=== PATIENT | male | born 1975 | race Hispanic/Latino ===

== ENCOUNTER 2019-04-23 01:36 | Inpatient (IN) | payer OTHER ==
[~2019-04-23] VITALS: Ht 162.6 cm; Wt 90.4 kg
[2019-04-23 03:33] LABS: BASOPHILS % (AUTO) 0.7 % (0.0-5.0); EOSINOPHILS % (AUTO) 1.7 % (0.0-8.0); HEMATOCRIT 45.3 % (42-54); LYMPHOCYTES % (AUTO) 22.2 % (21.0-51.0); MEAN CORPUSCULAR HEMOGLOBIN 33.6 pg (27.0-33.0); MEAN CORPUSCULAR HGB CONC 34.7 g/dL (32.0-36.0); MEAN CORPUSCULAR VOLUME 96.9 fL (79-99); MONOCYTES % (AUTO) 5.6 % (3.0-13.0); NEUTROPHILS % (AUTO) 69.8 % (40.0-77.0); PLATELET COUNT (AUTO) 187 K/uL (130-400); RED BLOOD CELL COUNT(AUTO) 4.67 MIL/uL (4.50-6.20); RED CELL DISTRIBUTION WIDTH 12.9 % (11.0-15.5); WHITE BLOOD COUNT (AUTO) 7.7 K/uL (4.8-10.8)
[2019-04-23 03:36] LABS: CREATININE 1.1 mg/dL (0.5-1.5); POTASSIUM 3.5 mmol/L (3.5-5.1)
[2019-04-23 03:41] LABS: ALBUMIN 3.9 g/dL (3.5-5.0); BILIRUBIN,TOTAL 0.9 mg/dL (0.2-1.0); TOTAL PROTEIN, SERUM 7.4 g/dL (6.0-8.3)
[2019-04-23 03:43] LABS: INR 1.02 (0.85-1.15); PARTIAL THROMBOPLASTIN TIME 24.2 SEC (26.3-35.5); PROTHROMBIN TIME 10.7 SEC (9.6-11.6)
[2019-04-23] MEDS ORDERED: ONDANSETRON HCL 4 MG/2 ML VIAL ONE (03:49)
[2019-04-23] MEDS ORDERED: MORPHINE SULFATE 4 MG/1ML SYG ONE (03:49)
[2019-04-23 04:45] VITALS: BP 137/87
[2019-04-23] MEDS ORDERED: ACETAMINOPHEN 650 MG SUPPOSITORY RC PRN ×2 (05:00)
[2019-04-23] MEDS ORDERED: SODIUM CHLORIDE 0.9% 1000ML 1,000 ML IV SCH (05:00)
[2019-04-23] MEDS ORDERED: MORPHINE SULFATE 4 MG/1ML SYG IV PRN (05:00)
[2019-04-23] MEDS ORDERED: NITROGLYCERIN 0.4 MG SL TAB SL PRN (05:00)
[2019-04-23] MEDS ORDERED: MORPHINE SULFATE 2 MG/ML 1ML SYG IV PRN (05:00)
[2019-04-23] MEDS ORDERED: ONDANSETRON HCL 4 MG/2 ML VIAL IV PRN (05:00)
[2019-04-23] MEDS ORDERED: SODIUM CHLORIDE 0.9% 1000ML 1,000 ML IV STA (05:29)
[2019-04-23] MEDS ORDERED: LORAZEPAM 2 MG/ML 1 ML VIAL IVP PRN ×2 (05:30)
[2019-04-23] MEDS ORDERED: THIAMINE HCL 100 MG, FOLIC ACID 1 MG, M.V.I. IV [ADULT] 10 ML in SODIUM CHLORIDE 0.9% 1... IV SCH (05:30)
[2019-04-23] MEDS ORDERED: PHARMACY COMMUNICATION MISC PRN (05:30)
[2019-04-23] MEDS ORDERED: CHLORDIAZEPOXIDE HCL 25 MG CAP PO PRN ×2 (05:30)
[2019-04-23] MEDS ORDERED: PROMETHAZINE HCL 25 MG TABLET PO PRN (05:30)
--- NOTE | 2019-04-23 05:30 | NUR ---
ADMITTED ADMITTED TO ROOM 406, HOSPITALIST NANNETTE BURCH TO SEE AND EXAMEN PATIENT WITH ORDERS
[2019-04-23] MEDS ORDERED: POTASSIUM CHLORIDE 20MEQ/100ML 100 ML IV PRN ×2 (05:45→18:45)
[2019-04-23] MEDS ORDERED: LIDOCAINE HCL-MPF 1% 2ML VIAL IVP PRN ×2 (05:45→18:45)
[2019-04-23] MEDS ORDERED: MAGNESIUM 2GM PREMIX 50ML 50 ML IV PRN (05:45)
[2019-04-23] MEDS ORDERED: MORPHINE SULFATE 2 MG/ML 1ML SYG ONE (05:51)
[2019-04-23 06:05] LABS: MAGNESIUM 2.2 mg/dL (1.80-2.40); PHOSPHORUS 3.6 mg/dL (2.5-4.9)
[2019-04-23 08:00] VITALS: BP 129/65
[2019-04-23 09:05] LABS: APPEARANCE,URINE Clear (CLEAR); BILIRUBIN,URINE Negative (NEGATIVE); COLOR,URINE Yellow (YELLOW); GLUCOSE, URINE (UA) Negative (NEGATIVE); KETONES,URINE Negative (NEGATIVE); LEUKOCYTE ESTERASE ,URINE Negative (NEGATIVE); NITRATE,URINE Negative (NEGATIVE); OCCULT BLOOD,URINE Negative (NEGATIVE); PROTEIN,URINE Negative (NEGATIVE)
[2019-04-23] MEDS: FAMOTIDINE/PF 20 MG/2 ML VIAL IV SCH ×2 (09:10→21:07)
[2019-04-23 09:17] LABS: AMPHET/METH SCREEN,URINE NEGATIVE (NEGATIVE); BARBITURATE SCREEN, URINE NEGATIVE (NEGATIVE); BENZODIAZEPINES SCREEN,URINE NEGATIVE (NEGATIVE); CANNABINOID SCREEN,URINE NEGATIVE (NEGATIVE); COCAINE SCREEN,URINE NEGATIVE (NEGATIVE); OPIATE SCREEN,URINE POSITIVE (NEGATIVE); PHENCYCLIDINE SCREEN,URINE NEGATIVE (NEGATIVE)
[2019-04-23 11:00] VITALS: BP 134/67
[2019-04-23] MEDS: CLINDAMYCIN 600 MG/D5% WATER 50 ML IV SCH (12:00)
[2019-04-23] MEDS: ENOXAPARIN SODIUM 30 MG/0.3 ML SQ SCH (12:20)
[2019-04-23 16:17] VITALS: BP 143/87
--- NOTE | 2019-04-23 16:59 | NUR ---
cm note met with patient and states resides at home with spouse . independent with adls and self care, no dme. informed pt may need a walker or crutches at time of dc. per pt states will try to see if he can obtain a walker, referral made to [facility] for possible medicaid assistance. also provided pt with list of low income clinics in the area and RX assist programs. pt states he will followup. plan to O.R tomorrow.
[2019-04-23] MEDS ORDERED: POTASSIUM CHLORIDE 10% ELIXIR 20 MEQ/15 ML UDCUP PO PRN (18:45)
[2019-04-23] MEDS ORDERED: POTASSIUM CHLORIDE 20 MEQ ERTAB PO PRN (18:45)
[2019-04-23 19:11] VITALS: BP 137/74
[2019-04-23] MEDS: ACETAMINOPHEN EXTRA STRENGTH 500 MG TABLET PO PRN (21:07)
[2019-04-23 23:36] VITALS: BP 155/94
[2019-04-24 03:15] VITALS: BP 144/86
[2019-04-24] MEDS: ACETAMINOPHEN EXTRA STRENGTH 500 MG TABLET PO PRN ×3 (03:25→21:41)
[2019-04-24 05:12] LABS: BASOPHILS % (AUTO) 0.3 % (0.0-5.0); EOSINOPHILS % (AUTO) 2.4 % (0.0-8.0); HEMATOCRIT 42.3 % (42-54); MEAN CORPUSCULAR HEMOGLOBIN 35.3 pg (27.0-33.0); MEAN CORPUSCULAR HGB CONC 36.8 g/dL (32.0-36.0); MEAN CORPUSCULAR VOLUME 95.9 fL (79-99); MONOCYTES % (AUTO) 7.5 % (3.0-13.0); NEUTROPHILS % (AUTO) 68.8 % (40.0-77.0); NUCLEATED RED BLOOD CELLS 0.2 % (0.0-0.19); PLATELET COUNT (AUTO) 149 K/uL (130-400); RED CELL DISTRIBUTION WIDTH 12.9 % (11.0-15.5); WHITE BLOOD COUNT (AUTO) 8.3 K/uL (4.8-10.8)
[2019-04-24 05:30] LABS: ALBUMIN 3.4 g/dL (3.5-5.0); BILIRUBIN,TOTAL 1.7 mg/dL (0.2-1.0); CREATININE 0.9 mg/dL (0.5-1.5); PHOSPHORUS 2.9 mg/dL (2.5-4.9); POTASSIUM 3.3 mmol/L (3.5-5.1); TOTAL PROTEIN, SERUM 6.8 g/dL (6.0-8.3)
[2019-04-24 07:35] VITALS: BP 133/90
--- NOTE | 2019-04-24 08:00 | NUR ---
Patient awake, alert, oriented x3. Denies pain at the moment, knee immobilizer in place to left leg. Instructed HIM to call if he has pain.
[2019-04-24] MEDS: FAMOTIDINE/PF 20 MG/2 ML VIAL IV SCH ×2 (09:17→19:57)
[2019-04-24] MEDS: THIAMINE HCL 100 MG, FOLIC ACID 1 MG, M.V.I. IV [ADULT] 10 ML in SODIUM CHLORIDE 0.9% 1... IV SCH (09:18)
[2019-04-24] MEDS: ENOXAPARIN SODIUM 30 MG/0.3 ML SQ SCH (09:18)
[2019-04-24 11:29] VITALS: BP 147/87
[2019-04-24] MEDS: CLINDAMYCIN 600 MG/D5% WATER 50 ML IV SCH (12:00)
--- NOTE | 2019-04-24 14:50 | NUR ---
Dr Banks visited with pt and reminded pt of surgery tomorrow.
[2019-04-24 16:04] VITALS: BP 159/89
[2019-04-24] MEDS ORDERED: POTASSIUM CHLORIDE 20 MEQ ERTAB PO SCH (18:00)
[2019-04-24] MEDS ORDERED: METOPROLOL TARTRATE 25 MG TAB PO SCH (18:00)
[2019-04-24 19:22] VITALS: BP 152/95
[2019-04-24] MEDS: SODIUM CHLORIDE 0.9% 1000ML 1,000 ML IV SCH (19:57)
[2019-04-24] MEDS: METOPROLOL TARTRATE 25 MG TAB PO SCH (19:57)
[2019-04-24 23:06] VITALS: BP 152/81
[2019-04-25] VITALS (20 sets, daily range): BP systolic 123–164; BP diastolic 68–101
[2019-04-25 04:46] LABS: HEMATOCRIT 45.5 % (42-54); MEAN CORPUSCULAR HEMOGLOBIN 33.9 pg (27.0-33.0); MEAN CORPUSCULAR HGB CONC 35.2 g/dL (32.0-36.0); MEAN CORPUSCULAR VOLUME 96.2 fL (79-99); PLATELET COUNT (AUTO) 182 K/uL (130-400); RED BLOOD CELL COUNT(AUTO) 4.73 MIL/uL (4.50-6.20); RED CELL DISTRIBUTION WIDTH 13.1 % (11.0-15.5); WHITE BLOOD COUNT (AUTO) 10.1 K/uL (4.8-10.8)
[2019-04-25 04:55] LABS: POTASSIUM 3.8 mmol/L (3.5-5.1)
[2019-04-25] MEDS: FAMOTIDINE/PF 20 MG/2 ML VIAL IV SCH ×2 (08:38→19:34)
[2019-04-25] MEDS: ENOXAPARIN SODIUM 30 MG/0.3 ML SQ SCH (08:39)
[2019-04-25] MEDS: METOPROLOL TARTRATE 25 MG TAB PO SCH ×2 (08:39→19:34)
[2019-04-25] MEDS ORDERED: COMPOUND IV REFRIGERATED 1 EACH IVSOLN MISC PRN (11:45)
[2019-04-25] MEDS ORDERED: LACTATED RINGERS 1000ML 1,000 ML IV ONE (12:24)
[2019-04-25] MEDS ORDERED: MIDAZOLAM HCL 1 MG/ML 2ML VIAL ONE (13:04)
[2019-04-25] MEDS ORDERED: LIDOCAINE PF 2% 5ML ABBOJECT ONE (13:12)
[2019-04-25] MEDS ORDERED: PROPOFOL 10 MG/ML 20ML VIAL IV ONE ×2 (13:12→13:34)
[2019-04-25] MEDS ORDERED: FENTANYL CITRATE PF 50 MCG/1 ML 2ML VIAL ONE ×4 (13:12→14:24)
[2019-04-25] MEDS ORDERED: ROCURONIUM 10MG/1ML SYR 10 MG/ML ML ONE (13:12)
[2019-04-25] MEDS: CLINDAMYCIN 600 MG/D5% WATER 50 ML IV SCH ×2 (13:15→19:34)
[2019-04-25] MEDS ORDERED: EPHEDRINE SULFATE 50 MG/ML AMPULE ONE (14:01)
[2019-04-25] MEDS: SODIUM CHLORIDE 0.9% 1000ML 1,000 ML IV SCH ×2 (14:46→15:30)
[2019-04-25] MEDS ORDERED: NEOSTIGMINE 5MG/5ML SYR IV ONE (14:53)
[2019-04-25] MEDS ORDERED: GLYCOPYRROLATE 1 MG/5 ML SYRINGE ONE (14:53)
[2019-04-25] MEDS ORDERED: LIDOCAINE HCL 2% 20ML ONE (14:55)
[2019-04-25] MEDS ORDERED: FERROUS FUMARATE 324 MG TABLET PO PRN (15:00)
[2019-04-25] MEDS: ACETAMINOPHEN EXTRA STRENGTH 500 MG TABLET PO SCH ×2 (15:00→19:35)
[2019-04-25] MEDS ORDERED: DiphenhydrAMINE HCL 50 MG/ML VIAL IVP PRN (15:00)
[2019-04-25] MEDS ORDERED: HYDROCODONE/ACETAMINOPHEN 5/325 MG TAB PO PRN (15:00)
[2019-04-25] MEDS ORDERED: LIDOCAINE HCL-MPF 1% 2ML VIAL IVP PRN (15:00)
[2019-04-25] MEDS ORDERED: CALCIUM CARBONATE 500 MG TABLET PO PRN (15:00)
[2019-04-25] MEDS ORDERED: POTASSIUM CHLORIDE 20MEQ/100ML 100 ML IV PRN (15:00)
[2019-04-25] MEDS ORDERED: DIPHENHYDRAMINE HCL 25 MG CAPSULE PO PRN (15:00)
[2019-04-25] MEDS ORDERED: POTASSIUM CHLORIDE 10% ELIXIR 20 MEQ/15 ML UDCUP PO PRN (15:00)
--- NOTE | 2019-04-25 15:17 | NUR ---
RD Notification Pt NPO at time of screen, pending procedure secondary to Left Tibial Plateau Fracture. Previous PO intake 100% as per EMR. When medically feasible, Rec to advance diet to Heart Healthy, Rec to add Thiamine/B-complex secondary to ETOH Abuse as per EMR. Pt LBM 04/24/19. Pt monitored labs: Glu 114, T. Bili 1.7, AST 56, ALT 141, Alb 3.4. RD to continue to monitor. Please notify RD as additional nutrition concerns arise. Thank you. Addendum: 04/25/19 at [address] RD Amended: Links added.
[2019-04-25] MEDS: THIAMINE HCL 100 MG, FOLIC ACID 1 MG, M.V.I. IV [ADULT] 10 ML in SODIUM CHLORIDE 0.9% 1... IV SCH (16:59)
[2019-04-25] MEDS: MORPHINE SULFATE 2 MG/ML 1ML SYG IV PRN ×2 (18:21→23:27)
[2019-04-25] MEDS: HYDROCODONE/ACETAMINOPHEN 5/325 MG TAB PO PRN (20:42)
[2019-04-25] MEDS ORDERED: TEMAZEPAM 15 MG CAPSULE ONE (22:44)
[2019-04-25] MEDS ORDERED: TEMAZEPAM 15 MG CAPSULE PO ONE (22:45)
[2019-04-26] VITALS (7 sets, daily range): BP systolic 135–162; BP diastolic 76–97
[2019-04-26] MEDS: SODIUM CHLORIDE 0.9% 1000ML 1,000 ML IV SCH ×2 (01:20→10:46)
[2019-04-26] MEDS: CLINDAMYCIN 600 MG/D5% WATER 50 ML IV SCH (01:20)
[2019-04-26] MEDS: HYDROCODONE/ACETAMINOPHEN 5/325 MG TAB PO PRN ×3 (01:20→12:16)
[2019-04-26] MEDS: MORPHINE SULFATE 2 MG/ML 1ML SYG IV PRN ×2 (03:49→08:28)
[2019-04-26 04:40] LABS: HEMATOCRIT 40.3 % (42-54); MEAN CORPUSCULAR HEMOGLOBIN 34.6 pg (27.0-33.0); MEAN CORPUSCULAR HGB CONC 36.3 g/dL (32.0-36.0); MEAN CORPUSCULAR VOLUME 95.6 fL (79-99); PLATELET COUNT (AUTO) 168 K/uL (130-400); RED BLOOD CELL COUNT(AUTO) 4.22 MIL/uL (4.50-6.20); RED CELL DISTRIBUTION WIDTH 12.8 % (11.0-15.5); WHITE BLOOD COUNT (AUTO) 14.3 K/uL (4.8-10.8)
[2019-04-26 04:58] LABS: INR 1.05 (0.85-1.15)
[2019-04-26] MEDS ORDERED: SODIUM CHLORIDE 0.9% 1000ML 1,000 ML IV SCH (05:00)
[2019-04-26 05:05] LABS: CREATININE 0.9 mg/dL (0.5-1.5); POTASSIUM 3.4 mmol/L (3.5-5.1)
[2019-04-26] MEDS: ACETAMINOPHEN EXTRA STRENGTH 500 MG TABLET PO SCH ×3 (05:43→22:44)
[2019-04-26] MEDS: POLYETHYLENE GLYCOL 3350 17 GM POWD.PACK PO SCH (08:24)
[2019-04-26] MEDS: METOPROLOL TARTRATE 25 MG TAB PO SCH ×2 (08:24→19:41)
[2019-04-26] MEDS: FAMOTIDINE/PF 20 MG/2 ML VIAL IV SCH ×2 (08:25→19:40)
[2019-04-26] MEDS: POTASSIUM CHLORIDE 20 MEQ ERTAB PO PRN ×2 (08:25→11:55)
[2019-04-26] MEDS: ENOXAPARIN SODIUM 30 MG/0.3 ML SQ SCH (08:27)
[2019-04-26] MEDS: PSYLLIUM SEED 1 EACH PACKET PO SCH (11:55)
--- NOTE | 2019-04-26 17:00 | NUR ---
S/P SURGERY PTS CHART REVIEWED, SP SURGGRETCHEN العلي; PREV INDP OF ADLS WITHOUT DME, NO INSURANCE, NO CLINIC, WILL FOLLOW NEEDE WITH [facility]. Addendum: 04/28/19 at 1813 by TERESA ARMENDARIZ RN CM Amended: Links added.
[2019-04-26] MEDS ORDERED: POTASSIUM CHLORIDE 20 MEQ ERTAB PO SCH (18:15)
[2019-04-26] MEDS ORDERED: HYDROCODONE/ACETAMINOPHEN 5/325 MG TAB PO PRN (19:00)
[2019-04-27 04:00] VITALS: BP 146/93
[2019-04-27 05:37] LABS: HEMATOCRIT 40.1 % (42-54); MEAN CORPUSCULAR HEMOGLOBIN 33.7 pg (27.0-33.0); MEAN CORPUSCULAR HGB CONC 35.6 g/dL (32.0-36.0); MEAN CORPUSCULAR VOLUME 94.6 fL (79-99); PLATELET COUNT (AUTO) 174 K/uL (130-400); RED BLOOD CELL COUNT(AUTO) 4.24 MIL/uL (4.50-6.20); RED CELL DISTRIBUTION WIDTH 12.7 % (11.0-15.5); WHITE BLOOD COUNT (AUTO) 14.1 K/uL (4.8-10.8)
[2019-04-27 05:51] LABS: CREATININE 0.9 mg/dL (0.5-1.5); POTASSIUM 3.8 mmol/L (3.5-5.1)
[2019-04-27 05:57] LABS: INR 1.06 (0.85-1.15); PROTHROMBIN TIME 11.1 SEC (9.6-11.6)
[2019-04-27] MEDS: ACETAMINOPHEN EXTRA STRENGTH 500 MG TABLET PO SCH ×3 (06:53→22:59)
[2019-04-27 07:48] VITALS: BP 136/93
[2019-04-27] MEDS: METOPROLOL TARTRATE 25 MG TAB PO SCH ×2 (08:25→20:48)
[2019-04-27] MEDS: POLYETHYLENE GLYCOL 3350 17 GM POWD.PACK PO SCH (08:25)
[2019-04-27] MEDS: FAMOTIDINE/PF 20 MG/2 ML VIAL IV SCH ×2 (08:25→20:48)
[2019-04-27] MEDS: ENOXAPARIN SODIUM 30 MG/0.3 ML SQ SCH (08:26)
[2019-04-27] MEDS ORDERED: LEVOFLOXACIN 500 MG/D5W 100 ML 100 ML IV SCH (10:15)
[2019-04-27 11:10] VITALS: BP 138/75
[2019-04-27] MEDS: PSYLLIUM SEED 1 EACH PACKET PO SCH (11:33)
--- NOTE | 2019-04-27 14:00 | NUR ---
RACHAEL PLANNING WEIGHT BEARING STATUS- ZERO TO AFFECTED LEG, CONFIRMED W SPOUSE AND PT, CRUTCHES AND CUTCH TRAIING TO BE PORVIDED, PLAN FOR D/C WHEN CLEARED BY PRIMARY SPOKE TO MYRON [facility], STATES WBC GOING UP, WILL KEEP ANOTHER DAY Addendum: 04/28/19 at 0717 by TERESA ARMENDARIZ RN CM Amended: Links added.
[2019-04-27 14:08] LABS: HEMATOCRIT 41.8 % (42-54); MEAN CORPUSCULAR HEMOGLOBIN 33.6 pg (27.0-33.0); MEAN CORPUSCULAR HGB CONC 35.1 g/dL (32.0-36.0); MEAN CORPUSCULAR VOLUME 95.8 fL (79-99); PLATELET COUNT (AUTO) 201 K/uL (130-400); RED BLOOD CELL COUNT(AUTO) 4.37 MIL/uL (4.50-6.20); RED CELL DISTRIBUTION WIDTH 12.5 % (11.0-15.5); WHITE BLOOD COUNT (AUTO) 14.7 K/uL (4.8-10.8)
[2019-04-27] MEDS ORDERED: BISACODYL 5 MG TABLET.DR PO PRN (15:00)
[2019-04-27 16:14] VITALS: BP 131/85
[2019-04-27 20:00] VITALS: BP 131/89
[2019-04-27 23:27] VITALS: BP 121/79
[2019-04-28 03:40] VITALS: BP 130/81
[2019-04-28 05:40] LABS: HEMATOCRIT 41.1 % (42-54); MEAN CORPUSCULAR HEMOGLOBIN 34.2 pg (27.0-33.0); MEAN CORPUSCULAR HGB CONC 35.5 g/dL (32.0-36.0); MEAN CORPUSCULAR VOLUME 96.4 fL (79-99); PLATELET COUNT (AUTO) 225 K/uL (130-400); RED BLOOD CELL COUNT(AUTO) 4.26 MIL/uL (4.50-6.20); RED CELL DISTRIBUTION WIDTH 12.8 % (11.0-15.5); WHITE BLOOD COUNT (AUTO) 11.1 K/uL (4.8-10.8)
[2019-04-28 05:46] LABS: INR 1.03 (0.85-1.15); PROTHROMBIN TIME 10.8 SEC (9.6-11.6)
[2019-04-28] MEDS: ACETAMINOPHEN EXTRA STRENGTH 500 MG TABLET PO SCH (06:36)
[2019-04-28] MEDS ORDERED: METO25 PO (07:15)
[2019-04-28] MEDS ORDERED: LEVO500T89 PO (07:15)
[2019-04-28 07:39] VITALS: BP 132/79
[2019-04-28] MEDS: POLYETHYLENE GLYCOL 3350 17 GM POWD.PACK PO SCH (08:33)
[2019-04-28] MEDS: METOPROLOL TARTRATE 25 MG TAB PO SCH (08:33)
[2019-04-28] MEDS: FAMOTIDINE/PF 20 MG/2 ML VIAL IV SCH (08:33)
[2019-04-28] MEDS: ENOXAPARIN SODIUM 30 MG/0.3 ML SQ SCH (08:33)
--- NOTE | 2019-04-28 09:15 | NUR ---
INSTRUCTIONS DISCHARGE INSTRUCTIONS GIVEN TO PATIENT AND FAMILY USING TEACH BACK. NEW PRESCRIPTIONS PLACED IN PACKET ALONG WITH ALL PRINTED INFORMATION AND MD INSTRUCTIONS. IV HAS BEEN REMOVED WITH TIP INTACT. DIRECT PRESSURE APPLIED UNTIL BLEEDING CONTROLLED THEN SITE COVERED WITH GAUZE AND SECURED WITH TAPE. NO QUESTIONS OR CONCERNS VOICED. PENDING RIDE HOME.
[2019-04-28] MEDS ORDERED: BISACODYL 10 MG SUPP.RECT RC PRN (15:00)
== END 2019-04-28 09:24 | disposition home or self-care (01) | DRG 494 ==
LOC: EDH 01:36 → EDHIP 01:37 → 4BH 04:35
PROVIDERS: ADMIT Internal Medicine; ATTEND Internal Medicine
PROC: 0QSH04Z Reposition Left Tibia with Internal Fixation Device, Open Approach (ICD-10-PCS; principal; 2019-04-25 08:00)
PROC: 0QUH0KZ Supplement Left Tibia with Nonautologous Tissue Substitute, Open Approach (ICD-10-PCS; 2019-04-25 08:00)
PROC: 3E0T3BZ Introduction of Anesthetic Agent into Peripheral Nerves and Plexi, Percutaneous Approach (ICD-10-PCS; 2019-04-25 08:00)
DX: S82.142A Displaced bicondylar fracture of left tibia, initial encounter for closed fracture (principal); D72.829 Elevated white blood cell count, unspecified; E66.9 Obesity, unspecified; E78.00 Pure hypercholesterolemia, unspecified; E78.5 Hyperlipidemia, unspecified; E87.6 Hypokalemia; F10.129 Alcohol abuse with intoxication, unspecified; Y90.6 Blood alcohol level of 120-199 mg/100 ml; W01.0XXA Fall on same level from slipping, tripping and stumbling without subsequent striking against object, initial encounter; Z82.49 Family history of ischemic heart disease and other diseases of the circulatory system; Z80.9 Family history of malignant neoplasm, unspecified; Z68.34 Body mass index [BMI] 34.0-34.9, adult; Z88.0 Allergy status to penicillin; Y93.83 Activity, rough housing and horseplay; Y92.009 Unspecified place in unspecified non-institutional (private) residence as the place of occurrence of the external cause; Y99.8 Other external cause status
CPT/HCPCS: 36415; 73562; 73700; 80048; 80053; 80305; 81003; 83735; 84100; 85025; 85027; 85610; 85730; 93005; 97039; G0378; G0480; J1650; J1956; J2001; J2250; J2270; J2405; J2704; J2710; J3010; J3411; J3490; J7030; J7120

== ENCOUNTER 2022-06-28 02:10 | Emergency (ER) | payer OTHER ==
[~2022-06-28] VITALS: Ht 162.6 cm; Wt 82.6 kg
[~2022-06-28 02:10] MED LIST: LEVO-70 PO; METO25 PO
[2022-06-28 02:37] LABS: BASOPHILS % (AUTO) 0.6 % (0.0-5.0); EOSINOPHILS % (AUTO) 2.5 % (0.0-8.0); HEMATOCRIT 44.2 % (42-54); LYMPHOCYTES % (AUTO) 37.7 % (21.0-51.0); MEAN CORPUSCULAR HEMOGLOBIN 33.2 pg (27.0-33.0); MEAN CORPUSCULAR HGB CONC 34.6 g/dL (32.0-36.0); MEAN CORPUSCULAR VOLUME 95.9 fL (79-99); MONOCYTES % (AUTO) 8.4 % (3.0-13.0); NEUTROPHILS % (AUTO) 50.6 % (40.0-77.0); PLATELET COUNT (AUTO) 73 K/uL (130-400); RED BLOOD CELL COUNT(AUTO) 4.61 MIL/uL (4.50-6.20); RED CELL DISTRIBUTION WIDTH 12.2 % (11.0-15.5); WHITE BLOOD COUNT (AUTO) 8.7 K/uL (4.8-10.8)
[2022-06-28 02:42] LABS: APPEARANCE,URINE CLEAR (CLEAR); BILIRUBIN,URINE NEGATIVE (NEGATIVE); COLOR,URINE YELLOW (YELLOW); GLUCOSE, URINE (UA) NEGATIVE (NEGATIVE); KETONES,URINE NEGATIVE (NEGATIVE); LEUKOCYTE ESTERASE ,URINE NEGATIVE (NEGATIVE); NITRATE,URINE NEGATIVE (NEGATIVE); OCCULT BLOOD,URINE NEGATIVE (NEGATIVE); PH,URINE 6.5 (5.0-8.0); PROTEIN,URINE NEGATIVE (NEGATIVE)
[2022-06-28 02:43] LABS: CREATININE 0.9 mg/dL (0.5-1.5); POTASSIUM 3.1 mmol/L (3.5-5.1)
[2022-06-28 02:46] LABS: AMPHET/METH SCREEN,URINE NEGATIVE (NEGATIVE); BARBITURATE SCREEN, URINE NEGATIVE (NEGATIVE); BENZODIAZEPINES SCREEN,URINE NEGATIVE (NEGATIVE); CANNABINOID SCREEN,URINE NEGATIVE (NEGATIVE); COCAINE SCREEN,URINE NEGATIVE (NEGATIVE); PHENCYCLIDINE SCREEN,URINE NEGATIVE (NEGATIVE)
[2022-06-28 02:48] LABS: ALBUMIN 3.5 g/dL (3.5-5.0); TOTAL PROTEIN, SERUM 8.4 g/dL (6.0-8.3)
[2022-06-28] MEDS ORDERED: KCL 20 MEQ ERTAB PO ONE (04:00)
[2022-06-28 04:08] LABS: MAGNESIUM 1.9 mg/dL (1.80-2.40)
[2022-06-28 05:28] VITALS: BP 118/62
== END 2022-06-28 05:39 | disposition home or self-care (01) ==
LOC: EDH 02:10
DX: E87.6 Hypokalemia (principal); D69.6 Thrombocytopenia, unspecified; M54.2 Cervicalgia; F10.129 Alcohol abuse with intoxication, unspecified; Z88.0 Allergy status to penicillin
CPT/HCPCS: 36415; 80053; 80305; 81003; 83735; 85025